=== PATIENT | female | born 1990 | race Caucasian/White ===

== ENCOUNTER 2020-04-24 06:57 | Emergency (ER) | payer OTHER ==
[2020-04-24 07:54] LABS: BASOPHIL 0.4 % (0-2); EOSINOPHIL 1.5 % (0-5); HCT 42.1 % (37.0-47.0); HGB 14.1 g/dl (12.5-16.0); LYMPHOCYTE 19.8 % (15-48); MCH 28.4 pg (25.0-31.0); MCHC 33.5 g/dL (32.0-36.0); MCV 84.7 fL (78.0-100.0); MONOCYTE 6.2 % (0-12); MPV 9.7 fL (6.0-9.5); NEUTROPHIL 71.8 % (41-80); NRBC 0; PLT 261 K/uL (150-400); RBC 4.97 M/uL (4.20-5.40); RDW 12.2 % (11.5-14.0); WBC 9.1 K/uL (4.0-10.5)
[2020-04-24 08:15] LABS: ALBUMIN 3.9 g/dL (3.4-5.0); BILIRUBIN - TOTAL 0.3 mg/dL (0.2-1.0); BUN/CREAT RATIO (CALC) 21.3 RATIO; CREATININE 0.61 mg/dL (0.51-0.95); GLOBULIN (CALCULATION) 3.2 g/dL; POTASSIUM 4.2 mmol/L (3.5-5.1); TOTAL PROTEIN 7.1 g/dL (6.4-8.2)
[2020-04-24 08:22] LABS: BILIRUBIN NEGATIVE (NEGATIVE); COLOR RED (YELLOW); GLUCOSE (U) NORMAL (NORMAL); LEUKOCYTES NEGATIVE Leu/uL (NEGATIVE); NITRITE NEGATIVE (NEGATIVE); PROTEIN 2+ mg/dL (NEGATIVE); SPECIFIC GRAVITY >=1.030 (1.001-1.030); UROBILINOGEN 0.2 mg/dL (0.2-1.0); pH 6.5 (5.0-9.0)
[2020-04-24 08:31] LABS: BLOOD 3+ Ery/uL (NEGATIVE)
[2020-04-24 08:32] LABS: CLARITY CLOUDY (CLEAR)
[2020-04-24 08:36] LABS: URINARY RBC TNTC
[2020-04-24] MEDS ORDERED: NAPROXEN500 MG PO (09:28)
[2020-04-24] MEDS ORDERED: PERCOCET 5-3251 EACH PO (09:28)
[2020-04-24 11:00] LABS: HCT 35.8 % (37.0-47.0); HGB 11.9 g/dL (12.5-16.0)
== END 2020-04-24 12:20 | disposition home or self-care (01) ==
LOC: FER 06:57
PROVIDERS: Emergency Medicine
DX: O03.9 Complete or unspecified spontaneous abortion without complication (principal)
CPT/HCPCS: 36415; 76801; 80053; 81001; 84702; 85014; 85018; 85025; J1885; J2405; J7030